=== PATIENT | female | born 1955 | race Caucasian/White ===

== ENCOUNTER 2021-01-21 09:52 | Inpatient (IN) | payer BC ==
[2021-01-21 10:21] LABS: Basophils # (A) 0.1 k/uL (0-0.2); Basophils % (A) 0 %; Eosinophils # (A) 0.2 k/uL (0-0.7); Eosinophils % (A) 1 %; HGB 15.2 gm/dL (11.4-16.0); Lymphocytes # (A) 2.3 k/uL (1.0-4.8); Lymphocytes % (A) 13 %; MCH 30.6 pg (25.0-35.0); MCV 92.8 fL (80.0-100.0); Mean Platelet Volume 8.6; Monocytes # (A) 0.4 k/uL (0-1.0); Monocytes % (A) 2 %; Neutrophils # (A) 14.8 k/uL (1.3-7.7); Neutrophils % (A) 83 %; Platelet Count 319 k/uL (150-450); RBC 4.96 m/uL (3.80-5.40); RDW 13.5 % (11.5-15.5); WBC 17.9 k/uL (3.8-10.6)
[2021-01-21 10:28] LABS: ALT 15 U/L (4-34); AST 34 U/L (14-36); African American GFR (CKD) >90 (>60 ml/min/1.73 sqM); Albumin 3.9 g/dL (3.5-5.0); Alkaline Phosphatase 95 U/L (38-126); Anion Gap 9 mmol/L; Blood Urea Nitrogen 12 mg/dL (7-17); Calcium 9.1 mg/dL (8.4-10.2); Carbon Dioxide 24 mmol/L (22-30); Chloride 102 mmol/L (98-107); Glucose 136 mg/dL (74-99); Magnesium 1.8 mg/dL (1.6-2.3); Non-African American GFR(CKD) >90 (>60 ml/min/1.73 sqM); Potassium 4.1 mmol/L (3.5-5.1); Sodium 135 mmol/L (137-145); Total Bilirubin 0.3 mg/dL (0.2-1.3); Total Protein 6.3 g/dL (6.3-8.2)
[2021-01-21 10:35] LABS: INR 0.9 (<1.2); Prothrombin Time 9.8 sec (9.0-12.0)
[2021-01-21] MEDS ORDERED: MORPHINE SULFATE 4 MG/ML SYRINGE IV PRN (10:38)
[2021-01-21] MEDS ORDERED: NALOXONE 0.4 MG/ML 1 ML VIAL IV PRN (10:38)
--- NOTE | 2021-01-21 10:38 | ED ---
General Adult HPI - General Stated complaint: Chest pain Time Seen by Provider: 01/21/21 09:53 Source: EMS, RN notes reviewed, old records reviewed Mode of arrival: EMS - History of Present Illness Initial comments: 65-year-old female had presented to outside emergency department for evaluation of chest discomfort which was in the center of her chest. This began approximately 3 AM. Patient has no known history of coronary artery disease. She states she has had some testing in the past and this was negative including stress test. She has no history DVT or PE. Patient's symptoms were treated wit h nitroglycerin at outside hospital and did result and relief of discomfort. She has minimal symptoms at the time my evaluation. She does have history of hypertension, hyperlipidemia, and is a current smoker. She was transferred for cardiology evaluation. - Related Data Allergies Allergy/AdvReac Type Severity Reaction Status Date / Time bee venom protein (honey bee) Allergy Anaphylaxis Verified 01/21/21 11:09 mold Allergy Unknown Verified 01/21/21 11:09 Review of Systems ROS Statement: Those systems with pertinent positive or pertinent negative responses have been documented in the HPI. ROS Other: All systems not noted in ROS Statement are negative. Past Medical History History of Any Multi-Drug Resistant Organisms: None Reported Past Psychological History: Anxiety Smoking Status: Current every day smoker Past Alcohol Use History: None Reported Past Drug Use History: None Reported General Exam General appearance: alert, in no apparent distress Head exam: Present: atraumatic, normocephalic Eye exam: Present: normal appearance, PERRL ENT exam: Present: normal exam Neck exam: Present: normal inspection. Absent: tenderness, meningismus Respiratory exam: Present: normal lung sounds bilaterally. Absent: respiratory distress, wheezes, rales Cardiovascular Exam: Present: regular rate, normal rhythm GI/Abdominal exam: Present: soft. Absent: distended, tenderness, guarding Extremities exam: Present: normal inspection, normal capillary refill. Absent: pedal edema Neurological exam: Present: alert, oriented X3, CN II-XII intact. Absent: motor sensory deficit Psychiatric exam: Present: normal affect, normal mood Skin exam: Present: warm, dry, intact. Absent: cyanosis, diaphoretic Course Vital Signs 01/21/21 01/21/21 09:53 10:14 Temperature 98.2 F Pulse Rate 75 68 Respiratory 20 20 Rate Blood Pressure 148/97 148/97 O2 Sat by Pulse 96 97 Oximetry EKG Findings - EKG Comments: EKG Findings:: EKG: Normal sinus rhythm, no ST segment elevation, rate of 70, OH interval 142, QRS duration 84, QTC 453. Repeat EKG at 1045, normal sinus rhythm no ST segment elevation, rate of 66, OH interval 142, QRS duration 88, QTC 442 Medical Decision Making - Medical Decision Making 65-year-old female with a transfer from outside hospital for evaluation of chest pain. EKG was sinus rhythm without ST segment elevation. Chest x-ray was performed, these images are currently being loaded for evaluation. Patient had a leukocytosis of 17.8, hemoglobin 14.9. She had platelets of 333. Normal electrolytes, normal kidney function, initial troponin was 0.05. All laboratory studies are currently being repeated in these results are pending. Case discussed with Dr. Isbell who will admit with cardiology on consult. Repeat troponin is elevated 0.8. Patient is started on heparin. Cardiology has been paged. Mar gage for Cardiology will evaluate patient in the emergency department, - Lab Data Result diagrams: 01/21/21 10:04 01/21/21 10:04 Lab Results 01/21/21 01/21/21 01/21/21 Range/Units 10:04 10:04 10:04 WBC 17.9 H (3.8-10.6) k/uL RBC 4.96 (3.80-5.40) m/uL Hgb 15.2 (11.4-16.0) gm/dL Hct 46.0 (34.0-46.0) % MCV 92.8 (80.0-100.0) fL MCH 30.6 (25.0-35.0) pg MCHC 33.0 (31.0-37.0) g/dL RDW 13.5 (11.5-15.5) % Plt Count 319 (150-450) k/uL MPV 8.6 Neutrophils % 83 % Lymphocytes % 13 % Monocytes % 2 % Eosinophils % 1 % Basophils % 0 % Neutrophils # 14.8 H (1.3-7.7) k/uL Lymphocytes # 2.3 (1.0-4.8) k/uL Monocytes # 0.4 (0-1.0) k/uL Eosinophils # 0.2 (0-0.7) k/uL Basophils # 0.1 (0-0.2) k/uL PT 9.8 (9.0-12.0) sec INR 0.9 (<1.2) APTT 20.9 L (22.0-30.0) sec Sodium 135 L (137-145) mmol/L Potassium 4.1 (3.5-5.1) mmol/L Chloride 102 (98-107) mmol/L Carbon Dioxide 24 (22-30) mmol/L Anion Gap 9 mmol/L BUN 12 (7-17) mg/dL Creatinine 0.45 L (0.52-1.04) mg/dL Est GFR (CKD-EPI)AfAm >90 (>60 ml/min/1.73 sqM) Est GFR (CKD-EPI)NonAf >90 (>60 ml/min/1.73 sqM) Glucose 136 H (74-99) mg/dL Calcium 9.1 (8.4-10.2) mg/dL Magnesium 1.8 (1.6-2.3) mg/dL Total Bilirubin 0.3 (0.2-1.3) mg/dL AST 34 (14-36) U/L ALT 15 (4-34) U/L Alkaline Phosphatase 95 (38-126) U/L Troponin I (0.000-0.034) ng/mL Total Protein 6.3 (6.3-8.2) g/dL Albumin 3.9 (3.5-5.0) g/dL 01/21/21 Range/Units 10:04 WBC (3.8-10.6) k/uL RBC (3.80-5.40) m/uL Hgb (11.4-16.0) gm/dL Hct (34.0-46.0) % MCV (80.0-100.0) fL MCH (25.0-35.0) pg MCHC (31.0-37.0) g/dL RDW (11.5-15.5) % Plt Count (150-450) k/uL MPV Neutrophils % % Lymphocytes % % Monocytes % % Eosinophils % % Basophils % % Neutrophils # (1.3-7.7) k/uL Lymphocytes # (1.0-4.8) k/uL Monocytes # (0-1.0) k/uL Eosinophils # (0-0.7) k/uL Basophils # (0-0.2) k/uL PT (9.0-12.0) sec INR (<1.2) APTT (22.0-30.0) sec Sodium (137-145) mmol/L Potassium (3.5-5.1) mmol/L Chloride (98-107) mmol/L Carbon Dioxide (22-30) mmol/L Anion Gap mmol/L BUN (7-17) mg/dL Creatinine (0.52-1.04) mg/dL Est GFR (CKD-EPI)AfAm (>60 ml/min/1.73 sqM) Est GFR (CKD-EPI)NonAf (>60 ml/min/1.73 sqM) Glucose (74-99) mg/dL Calcium (8.4-10.2) mg/dL Magnesium (1.6-2.3) mg/dL Total Bilirubin (0.2-1.3) mg/dL AST (14-36) U/L ALT (4-34) U/L Alkaline Phosphatase (38-126) U/L Troponin I 0.866 H* (0.000-0.034) ng/mL Total Protein (6.3-8.2) g/dL Albumin (3.5-5.0) g/dL Critical Care Time Critical Care Time: Yes Total Critical Care Time: 35 Disposition Clinical Impression: Acute non-ST elevation myocardial infarction (NSTEMI) Disposition: ADMITTED IP TO THIS [facility] Condition: Serious Is patient prescribed a controlled substance at d/c from ED?: No Decision to Admit Reason: Admit from EC Decision Date: 01/21/21 Decision Time: 10:38
[2021-01-21] MEDS ORDERED: ASPIRIN 325 MG TAB PO STA (10:40)
[2021-01-21 10:41] LABS: Partial Thromboplastin Time 20.9 sec (22.0-30.0)
[2021-01-21] MEDS ORDERED: NITROGLYCERIN OINT 1 INCH/GM PACKET TOPICAL STA (10:51)
[2021-01-21] MEDS ORDERED: HEPARIN SODIUM 1,000 UN/ML (10ML VL) IV PRN (10:57)
[2021-01-21] MEDS ORDERED: ATORVASTATIN 80 MG TAB PO STA (10:57)
[2021-01-21] MEDS ORDERED: HEPARIN SODIUM 1,000 UN/ML (10ML VL) IV ONE (10:57)
[2021-01-21] MEDS ORDERED: HEPARIN SOD,PORK IN 0.45% NACL 25,000 UNIT in 0.45% NACL 1 250ML.BAG IV SCH (11:00)
[2021-01-21] MEDS ORDERED: METOPROLOL TARTRATE 12.5 MG TAB PO SCH (11:30)
[2021-01-21] MEDS ORDERED: IV FLUID CONTINUATION 300 ML IV ONE (12:55)
--- NOTE | 2021-01-21 13:04 | P.CRDCN ---
History of Present Illness Consult date: 01/21/21 History of present illness: This is a 65-year-old female with history of smoking and strong family history of ischemic heart disease in both parents, is transferred from outside facility to this emergency room from [facility]. She woke up around 3:00 this morning with severe chest discomfort associated with shortness of breath. Patient got up and she took a drink took a sip of water without much relief. Finally patient went to the emergency room where she was treated with 3 sublingual nitroglycerin with gradual relief of pain. Her EKGs did not reveal any acute changes. Her troponin is mildly elevated. She also has white count elevation. She was given morphine for pain in the emergency room and seemed to be fairly comfortable. Patient is on Nitropaste and also IV heparin at this time. As patient is comfortable, patient is advised to have cardiac catheterization and which could be scheduled for tomorrow. However, patient requested that the catheterization be done as soon as possible. She understands the risks and benefits associated with the procedure. Further recommendations depend upon findings on the cardiac cath. Review of Systems As per the chart Past Medical History History of Any Multi-Drug Resistant Organisms: None Reported Past Psychological History: Anxiety Smoking Status: Current every day smoker Past Alcohol Use History: None Reported Past Drug Use History: None Reported Medications and Allergies Home Medications Medication Instructions Recorded Confirmed Type ALPRAZolam [Xanax] 0.25 mg PO DAILY 01/21/21 01/21/21 History ALPRAZolam [Xanax] 0.5 mg PO HS 01/21/21 01/21/21 History Albuterol Nebulized [Ventolin 2.5 mg INHALATION RT-QID PRN 01/21/21 01/21/21 History Nebulized] Aspirin 324 mg PO DIRECTED PRN 01/21/21 01/21/21 History Aspirin EC [Ecotrin Low Dose] 81 mg PO Q48H 01/21/21 01/21/21 History Cyclobenzaprine [Flexeril] 5 mg PO Q6H PRN 01/21/21 01/21/21 History Nitroglycerin Sl Tabs [Nitrostat] 0.4 mg SL Q5M PRN 01/21/21 01/21/21 History Omeprazole 20 mg PO HS 01/21/21 01/21/21 History Allergies Allergy/AdvReac Type Severity Reaction Status Date / Time bee venom protein (honey bee) Allergy Swelling Verified 01/21/21 11:28 mold Allergy Dyspnea Verified 01/21/21 11:28 Physical Exam Vitals: Vital Signs Temp Pulse Resp BP Pulse Ox 01/21/21 12:37 81 20 144/86 96 01/21/21 11:25 67 20 125/80 97 01/21/21 10:14 68 20 148/97 97 01/21/21 09:53 98.2 F 75 20 148/97 96 Intake and Output 01/20/21 01/21/21 01/21/21 22:59 06:59 14:59 Other: Weight 87.09 kg GENERAL EXAM: Patient is alert and oriented and doesn't appear to be in any acute distress HEENT: Normocephalic. Normal reaction of pupils, equal size, normal range of extraocular motion. No erythema or exudates in the throat. NECK: No masses, no nuchal rigidity. CHEST: No chest wall deformity. LUNGS: Equal air entry with no crackles or wheeze. HEART: S1 and S2 normal with no audible mumurs or gallops. Regular rhythm, femorals equal on both sides.. ABDOMEN: No hepatosplenomegaly, normal bowel sounds, no guarding or rigidity. SKIN: No rashes CENTRAL NERVOUS SYSTEM: No focal deficits. EXTREMITIES: No cyanosis, clubbing or edema. Results 01/21/21 10:04 01/21/21 10:04 Cardiac Enzymes 01/21/21 01/21/21 Range/Units 10:04 10:04 AST 34 (14-36) U/L Troponin I 0.866 H* (0.000-0.034) ng/mL Coagulation 01/21/21 Range/Units 10:04 PT 9.8 (9.0-12.0) sec APTT 20.9 L (22.0-30.0) sec CBC 01/21/21 Range/Units 10:04 WBC 17.9 H (3.8-10.6) k/uL RBC 4.96 (3.80-5.40) m/uL Hgb 15.2 (11.4-16.0) gm/dL Hct 46.0 (34.0-46.0) % Plt Count 319 (150-450) k/uL Comprehensive Metabolic Panel 01/21/21 Range/Units 10:04 Sodium 135 L (137-145) mmol/L Potassium 4.1 (3.5-5.1) mmol/L Chloride 102 (98-107) mmol/L Carbon Dioxide 24 (22-30) mmol/L BUN 12 (7-17) mg/dL Creatinine 0.45 L (0.52-1.04) mg/dL Glucose 136 H (74-99) mg/dL Calcium 9.1 (8.4-10.2) mg/dL AST 34 (14-36) U/L ALT 15 (4-34) U/L Alkaline Phosphatase 95 (38-126) U/L Total Protein 6.3 (6.3-8.2) g/dL Albumin 3.9 (3.5-5.0) g/dL Current Medications Generic Name Dose Route Start Last Admin Trade Name Freq PRN Reason Stop Dose Admin Acetaminophen 650 mg 01/21/21 10:38 Acetaminophen Tab 325 Mg Tab PO Q6HR PRN Mild Pain or Fever > 100.5 Aspirin 81 mg 01/22/21 09:00 Aspirin 81 Mg PO DAILY [facility] Atorvastatin Calcium 80 mg 01/21/21 21:00 Atorvastatin 80 Mg Tab PO HS DEAN Heparin Sodium (Porcine) 0 unit 01/21/21 10:57 Heparin Sodium 1,000 Un/Ml (10ml Vl) IV PER PROTOCOL PRN Low PTT Protocol Heparin Sodium/Sodium Chloride 250 mls @ 10.015 mls/hr 01/21/21 11:00 01/21/21 11:23 25,000 unit/ Sodium Chloride IV 11.48 units/kg/hr .Q24H DEAN 10 mls/hr Administration Protocol 11.5 UNITS/KG/HR Metoprolol Tartrate 12.5 mg 01/21/21 11:30 01/21/21 11:55 Metoprolol Tartrate 12.5 Mg Tab PO 12.5 mg BID DEAN Administration Morphine Sulfate 4 mg 01/21/21 10:38 01/21/21 11:08 Morphine Sulfate 4 Mg/Ml Syringe IV 4 mg Q4HR PRN Administration Severe Pain Naloxone HCl 0.2 mg 01/21/21 10:38 Naloxone 0.4 Mg/Ml 1 Ml Vial IV Q2M PRN Opioid Reversal Nitroglycerin 1 inch 01/21/21 16:00 Nitroglycerin Oint 1 Inch/Gm Packet TOPICAL Q8HR [facility] Intake and Output 01/20/21 01/21/21 01/21/21 22:59 06:59 14:59 Other: Weight 87.09 kg Patient Weight 01/22/21 06:59 Weight 87.09 kg 01/21/21 10:04 01/21/21 10:04 EKG Interpretations (text) Sinus rhythm Assessment and Plan (1) Smoking Current Visit: Yes Status: Acute Code(s): F17.200 - NICOTINE DEPENDENCE, UNSPECIFIED, UNCOMPLICATED SNOMED Code(s): 31845241 (2) Acute non-ST elevation myocardial infarction (NSTEMI) Current Visit: Yes Status: Acute Code(s): I21.4 - NON-ST ELEVATION (NSTEMI) MYOCARDIAL INFARCTION SNOMED Code(s): 201755104 (3) Family history of ischemic heart disease Current Visit: Yes Status: Acute Code(s): Z82.49 - FAMILY HX OF ISCHEM HEART DIS AND OTH DIS OF THE CIRC SYS SNOMED Code(s): 431119049 Plan: Patient wants to proceed with cardiac catheterization for definitive diagnosis. Further recommendations depend upon the cardiac cath. We'll also obtain an echocardiogram. Continue with beta blockers, nitrates, aspirin, lipid-lowering agents and oxygen
[2021-01-21] MEDS ORDERED: fentaNYL (PF) 50 MCG/ML 2 ML AMP IV ONE (13:12)
[2021-01-21] MEDS ORDERED: LIDOCAINE 1% INJ 10MG/ML (20 ML MDV) SQ ONE (13:15)
[2021-01-21] MEDS ORDERED: VERAPAMIL SYRINGE (5 MG/10 ML) INTRAARTER ONE (13:18)
[2021-01-21] MEDS ORDERED: MIDAZOLAM 2 MG/2 ML VIAL IV ONE (13:18)
[2021-01-21] MEDS: HEPARIN SODIUM 1,000 UN/ML (10ML VL) IV ONE ×2 (13:23→13:39)
[2021-01-21] MEDS ORDERED: IOPAMIDOL-370 100ML BTL INJ ONE ×2 (13:44→14:15)
[2021-01-21] MEDS: NITROGLYCERIN 1000MCG/10ML SYRINGE INTRACORON ONE ×2 (13:59→14:07)
[2021-01-21] MEDS ORDERED: CLOPIDOGREL 75 MG TAB PO ONE (14:08)
--- NOTE | 2021-01-21 15:01 | ECHOF ---
Referral Reason:CP MEASUREMENTS -------- HEIGHT: 152.4 cm WEIGHT: 87.1 kg BP: RVIDd: 2.8 cm (< 3.3) IVSd: 1.2 cm (0.6 - 1.1) LVIDd: 4.3 cm (3.9 - 5.3) LVPWd: 1.3 cm (0.6 - 1.1) IVSs: 1.7 cm LVIDs: 3.2 cm LVPWs: 1.2 cm LAESV Index (A-L): 19.23 ml/m Ao Diam: 2.9 cm (2.0 - 3.7) AV Cusp: 2.0 cm (1.5 - 2.6) MV EXCURSION: 16.312 mm (> 18.000) MV EF SLOPE: 62 mm/s (70 - 150) EPSS: 0.6 cm MV E Baljeet: 0.50 m/s MV DecT: 200 ms MV A Baljeet: 0.99 m/s MV E/A Ratio: 0.51 RAP: 5.00 mmHg RVSP: 11.24 mmHg FINDINGS -------- Sinus rhythm. This was a technically good study. The left ventricular size is normal. There is mild concentric left ventricular hypertrophy. Overa ll left ventricular systolic function is mild-moderately impaired with, an EF between 40 - 45 %. Ba yanci lateral LV wall motion is hypokinetic. Basal posterior LV wall motion is hypokinetic. Basal inferior LV wall motion is hypokinetic. Mid lateral LV wall motion is hypokinetic. Mid posteri or LV wall motion is hypokinetic. Mid inferior LV wall motion is hypokinetic. The right ventricle is normal in size. Normal LA size by volume 22+/-6 ml/m2. The right atrial size is normal. There is mild aortic valve sclerosis. There is no evidence of aortic regurgitation. Mild mitral regurgitation is present. Mild tricuspid regurgitation present. Right ventricular systolic pressure is normal at < 35 mmHg. There is no pulmonic regurgitation present. Echo free space indicative of a pericardial fat pad. CONCLUSIONS -------- 1. The left ventricular size is normal. 2. There is mild concentric left ventricular hypertrophy. 3. Basal lateral LV wall motion is hypokinetic. 4. Mid lateral LV wall motion is hypokinetic. 5. The right ventricle is normal in size. 6. Normal LA size by volume 22+/-6 ml/m2. 7. The right atrial size is normal. 8. There is mild aortic valve sclerosis. 9. Mild mitral regurgitation is present. 10. Mild tricuspid regurgitation present. 11. Echo free space indicative of a pericardial fat pad. WEB COORDINATOR: Nandini Velasco RDCS
[2021-01-21] MEDS ORDERED: NITROGLYCERIN SL TABS 0.4 MG TAB SUBLINGUAL PRN (15:44)
[2021-01-21] MEDS ORDERED: CYCLOBENZAPRINE 5 MG TAB PO PRN (15:44)
[2021-01-21] MEDS ORDERED: ALBUTEROL NEBULIZED 2.5 MG/3 ML INHALATION PRN (15:44)
[2021-01-21] MEDS ORDERED: NON FORMULARY DRUG (Aspirin Ec 81 MG Tablet.Dr) PO SCH (15:45)
[2021-01-21 16:14] LABS: Glucose,Whole Blood 119 mg/dL (75-99)
--- NOTE | 2021-01-21 17:28 | CC ---
CARDIAC CATHETERIZATION REPORT DATE OF SERVICE: 01/21/2021 PROCEDURE: PTCA and stenting of a totally occluded mid circumflex coronary artery. PERFORMED BY: Dr. Gray Mota. Moderate conscious sedation time was 45 minutes. Patient was administered Versed. Oxygen saturation, hemodynamics and EKG were monitored closely. CLINICAL INFORMATION: Mrs. Vijaya Peres is a 65-year-old lady who is a smoker, came into the hospital with chest pain upon transfer from [place] or [place] was found to have elevated troponin and mild chest discomfort suggestive of non-ST elevation [place] with mild ST- segment depression in the EKG. Dr. Foy evaluated the patient, performed cardiac cath which revealed total occlusion of mid circumflex after the origin of a groove branch. She had moderate noncritical disease in other vessels. She was advised PCI that was performed expeditiously. PCI PROCEDURE DETAILS: The patient's ACT was 184. I gave 2500 units of heparin and ACT went up to 340. I used a Voda 3.5 guide catheter to cannulate the left coronary artery. I used the same right radial 6-Lao sheath. A run-through wire was used, but I could not cross the lesion. I used a super cross 45 degree. With this combination, I was able to get across the lesion. Wire was kept distally. This was a very tortuous branch and there seemed to be a lot of thrombus that went distally. However, the flow was excellent. Patient had total relief of chest pain. EKG improved with the resolution of ST-segment depression. I initially dilated with a 2.5 caliber 12 mm NC Trek balloon at the total occlusion and then deployed a 2.75 caliber 15 mm long Xience stent at 13 atmospheres. The patient received 600 mg of Plavix and also heparin was given and ACT was about 340. Excellent angiographic result without complication was achieved. The sheath was taken out and a TR band applied as per protocol. Saturation of the fingers of the right hand was 95%. Excellent angiographic result without complication was achieved. Very distally there seems to be some thrombus, but there is also extreme tortuosity and therefore I did not wish to pursue the distal lesion beyond which there was only a small amount of vessel. Results were discussed with the patient and family and she was sent to the room in stable condition. MMODL / IJN: [id number] /
[2021-01-21] MEDS: NICOTINE 14MG/24HR PATCH TRANSDERM SCH (17:56)
[2021-01-21] MEDS: NITROGLYCERIN OINT 1 INCH/GM PACKET TOPICAL SCH ×2 (17:57→22:44)
--- NOTE | 2021-01-21 18:21 | P.HPIM ---
History of Present Illness H&P Date: 01/21/21 Chief Complaint: Chest pain 65-year-old female had presented to outside emergency department for evaluation of chest discomfort which was in the center of her chest. This began approximately 3 AM. Patient has no known history of coronary artery disease. She states she has had some testing in the past and this was negative including stress test. She has no history DVT or PE. Patient's symptoms were treated with nitroglycerin at outside hospital and did result and relief of discomfort. She has minimal symptoms at the time my evaluation. She does have history of hy pertension, hyperlipidemia, and is a current smoker. She was transferred for cardiology evaluation. Workup in ED; ETT did not reveal any acute changes; blood work reveals initial troponin of 0.866 which trended up to 3.800; elevated WBC of 17.9, hemoglobin 15.2 and platelet count of 1319, sodium 135, BUN/creatinine of 12/0.45 and glucose of 136 Patient is admitted to the hospital for further cardiology evaluation Review of Systems REVIEW OF SYSTEMS: CONSTITUTIONAL: No fever, no malaise, no fatigue. HEENT: No recent visual problems or hearing problems. Denied any sore throat. CARDIOVASCULAR: No chest pain, orthopnea, PND, no palpitations, no syncope. PULMONARY: No shortness of breath, no cough, no hemoptysis. GASTROINTESTINAL: No diarrhea, no nausea, no vomiting, no abdominal pain. NEUROLOGICAL: No headaches, no weakness, no numbness. HEMATOLOGICAL: Denies any bleeding or petechiae. GENITOURINARY: Denies any burning micturition, frequency, or urgency. MUSCULOSKELETAL/RHEUMATOLOGICAL: Denies any joint pain, swelling, or any muscle pain. ENDOCRINE: Denies any polyuria or polydipsia. The rest of the 14-point review of systems is negative. Past Medical History History of Any Multi-Drug Resistant Organisms: None Reported Past Psychological History: Anxiety Smoking Status: Current every day smoker Past Alcohol Use History: None Reported Past Drug Use History: None Reported - Past Family History Father History Unknown: Yes Mother History Unknown: Yes Medications and Allergies Home Medications Medication Instructions Recorded Confirmed Type ALPRAZolam [Xanax] 0.25 mg PO DAILY 01/21/21 01/21/21 History ALPRAZolam [Xanax] 0.5 mg PO HS 01/21/21 01/21/21 History Albuterol Nebulized [Ventolin 2.5 mg INHALATION RT-QID PRN 01/21/21 01/21/21 History Nebulized] Aspirin 324 mg PO DIRECTED PRN 01/21/21 01/21/21 History Aspirin EC [Ecotrin Low Dose] 81 mg PO Q48H 01/21/21 01/21/21 History Cyclobenzaprine [Flexeril] 5 mg PO Q6H PRN 01/21/21 01/21/21 History Nitroglycerin Sl Tabs [Nitrostat] 0.4 mg SL Q5M PRN 01/21/21 01/21/21 History Omeprazole 20 mg PO HS 01/21/21 01/21/21 History Allergies Allergy/AdvReac Type Severity Reaction Status Date / Time bee venom protein (honey bee) Allergy Swelling Verified 01/21/21 11:28 mold Allergy Dyspnea Verified 01/21/21 11:28 Physical Exam Vitals: Vital Signs Temp Pulse Resp BP Pulse Ox 01/21/21 10:14 68 20 148/97 97 01/21/21 09:53 98.2 F 75 20 148/97 96 Intake and Output 01/20/21 01/21/21 01/21/21 22:59 06:59 14:59 Other: Weight 87.09 kg PHYSICAL EXAMINATION: GENERAL: The patient is alert and oriented x3, not in any acute distress. Well developed, well nourished. HEENT: Pupils are round and equally reacting to light. EOMI. No scleral icterus. No conjunctival pallor. Normocephalic, atraumatic. No pharyngeal erythema. No thyromegaly. CARDIOVASCULAR: S1 and S2 present. No murmurs, rubs, or gallops. PULMONARY: Chest is clear to auscultation, no wheezing or crackles. ABDOMEN: Soft, nontender, nondistended, normoactive bowel sounds. No palpable organomegaly. MUSCULOSKELETAL: No joint swelling or deformity. EXTREMITIES: No cyanosis, clubbing, or pedal edema. NEUROLOGICAL: Gross neurological examination did not reveal any focal deficits. SKIN: No rashes. Results CBC & Chem 7: 01/21/21 10:04 01/21/21 10:04 Labs: Abnormal Lab Results - Last 24 Hours (Table) 01/21/21 Range/Units 10:04 WBC 17.9 H (3.8-10.6) k/uL Neutrophils # 14.8 H (1.3-7.7) k/uL Assessment and Plan Assessment: 1. Non-STEMI - Patient's troponin trended up to 3.08; patient is started on IV heparin; we will monitor EKG and trend troponin; scheduled for 2-D echo; started on aspirin and statin therapy; further recommendations after patient seen by cardiology 2. Leukocytosis; possibly reactive; we will monitor CBC with plans to initiate sepsis workup if white blood count remains elevated 3. Anxiety; we will continue with home dose of Xanax 4. Chronic tobacco abuse; patient counseled on need for some cessation DVT prophylaxis; SCDs/systemic anticoagulation with heparin CODE STATUS; full code
[2021-01-21] MEDS: ATORVASTATIN 80 MG TAB PO SCH (20:36)
[2021-01-21] MEDS: ALPRAZolam 0.5 MG TAB PO SCH (20:36)
[2021-01-21] MEDS: PANTOPRAZOLE 40 MG TABLET PO SCH (20:36)
[2021-01-21] MEDS: METOPROLOL SUCCINATE (ER) 25 MG TAB.ER.24H PO SCH (20:37)
[2021-01-22] MEDS: ACETAMINOPHEN TAB 325 MG TAB PO PRN ×2 (00:37→13:32)
[2021-01-22 08:52] LABS: Basophils # (A) 0.1 k/uL (0-0.2); Basophils % (A) 0 %; Eosinophils # (A) 0.2 k/uL (0-0.7); Eosinophils % (A) 1 %; HCT 46.2 % (34.0-46.0); HGB 15.2 gm/dL (11.4-16.0); Lymphocytes % (A) 20 %; MCH 30.9 pg (25.0-35.0); MCHC 32.8 g/dL (31.0-37.0); MCV 94.1 fL (80.0-100.0); Mean Platelet Volume 8.1; Monocytes # (A) 0.6 k/uL (0-1.0); Monocytes % (A) 4 %; Neutrophils # (A) 10.6 k/uL (1.3-7.7); Neutrophils % (A) 73 %; Platelet Count 315 k/uL (150-450); RBC 4.91 m/uL (3.80-5.40); RDW 13.5 % (11.5-15.5); WBC 14.6 k/uL (3.8-10.6)
[2021-01-22 08:58] LABS: African American GFR (CKD) >90 (>60 ml/min/1.73 sqM); Anion Gap 5 mmol/L; Blood Urea Nitrogen 7 mg/dL (7-17); Calcium 9.5 mg/dL (8.4-10.2); Carbon Dioxide 29 mmol/L (22-30); Chloride 103 mmol/L (98-107); Glucose 149 mg/dL (74-99); Non-African American GFR(CKD) >90 (>60 ml/min/1.73 sqM); Potassium 4.4 mmol/L (3.5-5.1); Sodium 137 mmol/L (137-145)
[2021-01-22] MEDS ORDERED: ASPIRIN 325 MG TAB PO SCH (09:00)
[2021-01-22] MEDS: NICOTINE 14MG/24HR PATCH TRANSDERM SCH (09:19)
[2021-01-22] MEDS: METOPROLOL SUCCINATE (ER) 25 MG TAB.ER.24H PO SCH ×2 (09:20→20:16)
[2021-01-22] MEDS: NITROGLYCERIN OINT 1 INCH/GM PACKET TOPICAL SCH ×3 (09:20→23:49)
[2021-01-22] MEDS: ASPIRIN 81 MG PO SCH (09:20)
[2021-01-22] MEDS: ALPRAZolam 0.25 MG TAB PO SCH (09:20)
[2021-01-22] MEDS: LOSARTAN 25 MG TAB PO SCH (09:20)
[2021-01-22] MEDS: CLOPIDOGREL 75 MG TAB PO SCH (09:20)
--- NOTE | 2021-01-22 14:32 | P.PN ---
Subjective Progress Note Date: 01/22/21 HISTORY OF PRESENT ILLNESS: 65-year-old female who underwent cardiac catheterization yesterday with Dr. Foy. Patient underwent stenting by Dr. Mota of a totally occluded mid circumflex coronary artery. Patient examined this point the bedside. She denies chest pain or pressure. She denies shortness of breath. Vital signs are stable. Echocardiogram completed revealed ejection fraction 40-45%. Basal lateral LV and mid lateral LV wall hypokinesis. Mild mitral regurgitation. Mild tricuspid regurgitation. Patient did have a 7 beat run of nonsustained V. tach overnight. PHYSICAL EXAM: VITAL SIGNS: Reviewed. GENERAL: Well-developed in no acute distress. NECK: Supple. No JVD or thyromegaly LUNGS: Respirations even and unlabored. Lungs essentially clear to auscultation bilaterally. HEART: Regular rate and rhythm. S1 and S2 heard. EXTREMITIES: Normal range of motion. No clubbing or cyanosis. Peripheral pulses intact. No lower extremity edema. Right radial cath site with pulse present. ASSESSMENT: Non-STEMI, status post stenting to circumflex artery Ischemic cardiomyopathy, ejection fraction 40-45% Nonsustained ventricular tachycardia Nicotine dependence Family history of coronary artery disease PLAN: Continue current cardiac medications including aspirin, Plavix, Lipitor, losarta n, metoprolol succinate Continue telemetry monitoring Anticipate discharge home tomorrow if patient remains stable Nurse practitioner note has been reviewed by physician. Signing provider agrees with the documented findings, assessment, and plan of care. Objective - Vital Signs Vital signs: Vital Signs Temp 98.9 F 01/22/21 08:00 Pulse 80 01/22/21 14:00 Resp 18 01/22/21 14:00 BP 113/79 01/22/21 12:00 Pulse Ox 97 01/22/21 12:00 Intake & Output 01/21/21 01/22/21 01/22/21 18:59 06:59 18:59 Intake Total 420 240 Balance 420 240 Weight 87.09 kg 71.7 kg Intake: IV 200 Oral 220 240 Other: Voiding Method Toilet Toilet Toilet # Voids 1 1 1 - Labs CBC & Chem 7: 01/22/21 08:10 01/22/21 08:10 Labs: Abnormal Lab Results - Last 24 Hours (Table) 01/21/21 01/22/21 01/22/21 Range/Units 16:12 08:10 08:10 WBC 14.6 H (3.8-10.6) k/uL Hct 46.2 H (34.0-46.0) % Neutrophils # 10.6 H (1.3-7.7) k/uL Glucose 149 H (74-99) mg/dL POC Glucose (mg/dL) 119 H (75-99) mg/dL
--- NOTE | 2021-01-22 17:35 | P.PN ---
Subjective Progress Note Date: 01/22/21 Principal diagnosis: Non-STEMI Leukocytosis 65-year-old female had presented to outside emergency department for evaluation of chest discomfort which was in the center of her chest. This began approximately 3 AM. Patient has no known history of coronary artery disease. She states she has had some testing in the past and this was negative including stress test. She has no history DVT or PE. Patient's symptoms were treated with nitroglycerin at outside hospital and did result and relief of discomfort. She has minimal symptoms at the time my evaluation. She does have history of hypertension, hyperlipidemia, and is a current smoker. She was transferred for cardiology evaluation. Workup in ED; ETT did not reveal any acute changes; blood work reveals initial troponin of 0.866 which trended up to 3.800; elevated WBC of 17.9, hemoglobin 15.2 and platelet count of 1319, sodium 135, BUN/creatinine of 12/0.45 and glucose of 136 Patient is admitted to the hospital for further cardiology evaluation Patient underwent cardiac catheterization which revealed totally occluded mid circumflex coronary artery; patient underwent stent placement; echocardiogram reveals EF of 40-45%, left ventricular wall hypokinesis; patient did have a 7 beat run of V. tach; cardiology on board and recommending to continue with aspirin, Plavix, Lipitor, losartan and metoprolol Possible discharge in next 24 hours if remains stable Objective - Vital Signs Vital signs: Vital Signs Temp 98.9 F 01/22/21 08:00 Pulse 78 01/22/21 08:00 Resp 18 01/22/21 08:00 BP 108/73 01/22/21 08:00 Pulse Ox 96 01/22/21 08:00 Intake & Output 01/21/21 01/22/21 01/22/21 18:59 06:59 18:59 Intake Total 420 240 Balance 420 240 Weight 87.09 kg 71.7 kg Intake: IV 200 Oral 220 240 Other: Voiding Method Toilet Toilet Toilet # Voids 1 1 1 - Exam PHYSICAL EXAMINATION: GENERAL: The patient is alert and oriented x3, not in any acute distress. Well developed, well nourished. HEENT: Pupils are round and equally reacting to light. EOMI. No scleral icterus. No conjunctival pallor. Normocephalic, atraumatic. No pharyngeal erythema. No thyromegaly. CARDIOVASCULAR: S1 and S2 present. No murmurs, rubs, or gallops. PULMONARY: Chest is clear to auscultation, no wheezing or crackles. ABDOMEN: Soft, nontender, nondistended, normoactive bowel sounds. No palpable organomegaly. MUSCULOSKELETAL: No joint swelling or deformity. EXTREMITIES: No cyanosis, clubbing, or pedal edema. NEUROLOGICAL: Gross neurological examination did not reveal any focal deficits. SKIN: No rashes. - Labs CBC & Chem 7: 01/22/21 08:10 01/22/21 08:10 Labs: Abnormal Lab Results - Last 24 Hours (Table) 01/21/21 01/21/21 01/22/21 Range/Units 12:45 16:12 08:10 WBC 14.6 H (3.8-10.6) k/uL Hct 46.2 H (34.0-46.0) % Neutrophils # 10.6 H (1.3-7.7) k/uL Glucose (74-99) mg/dL POC Glucose (mg/dL) 119 H (75-99) mg/dL Troponin I 3.800 H* (0.000-0.034) ng/mL 01/22/21 Range/Units 08:10 WBC (3.8-10.6) k/uL Hct (34.0-46.0) % Neutrophils # (1.3-7.7) k/uL Glucose 149 H (74-99) mg/dL POC Glucose (mg/dL) (75-99) mg/dL Troponin I (0.000-0.034) ng/mL Assessment and Plan Assessment: 1. Non-STEMI - Patient's troponin trended up to 3.08; patient is started on IV heparin; we will monitor EKG and trend troponin; scheduled for 2-D echo; started on aspirin and statin therapy; further recommendations after patient seen by cardiology 2. Leukocytosis; possibly reactive; we will monitor CBC with plans to initiate sepsis workup if white blood count remains elevated 3. Anxiety; we will continue with home dose of Xanax 4. Chronic tobacco abuse; patient counseled on need for some cessation DVT prophylaxis; SCDs/systemic anticoagulation with heparin CODE STATUS; full code
[2021-01-22] MEDS: ATORVASTATIN 80 MG TAB PO SCH (20:16)
[2021-01-22] MEDS: PANTOPRAZOLE 40 MG TABLET PO SCH (20:16)
[2021-01-22] MEDS: ALPRAZolam 0.5 MG TAB PO SCH (20:17)
[2021-01-23] MEDS: NITROGLYCERIN OINT 1 INCH/GM PACKET TOPICAL SCH (08:14)
[2021-01-23] MEDS: ALPRAZolam 0.25 MG TAB PO SCH (08:17)
[2021-01-23] MEDS: ASPIRIN 81 MG PO SCH (08:17)
[2021-01-23] MEDS: LOSARTAN 25 MG TAB PO SCH (08:17)
[2021-01-23] MEDS: CLOPIDOGREL 75 MG TAB PO SCH (08:17)
[2021-01-23] MEDS: METOPROLOL SUCCINATE (ER) 25 MG TAB.ER.24H PO SCH (08:18)
[2021-01-23] MEDS: NICOTINE 14MG/24HR PATCH TRANSDERM SCH (08:18)
[2021-01-23 08:47] VITALS: RESP 20
--- NOTE | 2021-01-23 11:22 | P.PN ---
Subjective Progress Note Date: 01/23/21 HISTORY OF PRESENT ILLNESS: 65-year-old female who underwent cardiac catheterization yesterday with Dr. Foy. Patient underwent stenting by Dr. Mota of a totally occluded mid circumflex coronary artery. Patient examined this point the bedside. She denies chest pain or pressure. She denies shortness of breath. Vital signs are stable. Echocardiogram completed revealed ejection fraction 40-45%. Basal lateral LV and mid lateral LV wall hypokinesis. Mild mitral regurgitation. Mild tricuspid regurgitation. Patient did have a 7 beat run of nonsustained V. tach overnight. 01/23/2021 Patient examined this morning at the bedside. Patient denies chest pain or pressure. She denies shortness of breath. Patient's vital signs are stable. Patient is anxious to be discharged home today. PHYSICAL EXAM: VITAL SIGNS: Reviewed. GENERAL: Well-developed in no acute distress. NECK: Supple. No JVD or thyromegaly LUNGS: Respirations even and unlabored. Lungs essentially clear to auscultation bilaterally. HEART: Regular rate and rhythm. S1 and S2 heard. EXTREMITIES: Normal range of motion. No clubbing or cyanosis. Peripheral pulses intact. No lower extremity edema. Right radial cath site with pulse present. ASSESSMENT: Non-STEMI, status post stenting to circumflex artery Ischemic cardiomyopathy, ejection fraction 40-45% Nonsustained ventricular tachycardia Nicotine dependence Family history of coronary artery disease PLAN: Continue current cardiac medications including aspirin, Plavix, Lipitor, losartan, metoprolol succinate Patient may be discharged home today from a cardiac standpoint. She is to follow up outpatient with Dr. Foy Nurse practitioner note has been reviewed by physician. Signing provider agrees with the documented findings, assessment, and plan of care. Objective - Vital Signs Vital signs: Vital Signs Temp 97.8 F 01/23/21 08:00 Pulse 72 01/23/21 08:00 Resp 20 01/23/21 08:00 BP 105/67 01/23/21 08:00 Pulse Ox 97 01/23/21 08:00 Intake & Output 01/22/21 01/23/21 01/23/21 18:59 06:59 18:59 Intake Total 598 240 Balance 598 240 Weight 71.3 kg Intake: Oral 598 240 Other: Voiding Method Toilet Toilet # Voids 1 0 1 - Labs CBC & Chem 7: 01/22/21 08:10 01/22/21 08:10 Labs: Abnormal Lab Results - Last 24 Hours (Table) 01/23/21 Range/Units 09:01 Troponin I 15.400 H* (0.000-0.034) ng/mL
[2021-01-23 11:37] VITALS: BP 107/67; PULSE 83; TEMP 98.5
--- NOTE | 2021-01-24 13:20 | P.DS ---
Providers Date of admission: 01/21/21 10:38 Expected date of discharge: 01/23/21 Attending physician: Pratibha Isbell Consults: 01/21/21 10:39 Consult Physician Routine Consulting Provider: Jenna Foy Consult Reason/Comments: NSTEMI Do you want consulting provider notified?: Already Contacted Primary care physician: Tyrell Connors Hospital Course: Final diagnosis N-STEMI status post cardiac catheterization with stent placement Totally occluded mid circumflex coronary artery with stent placement with EF of 40-45% Leukocytosis most likely reactive and trending down Anxiety continued ongoing nicotine dependence with counseling provided DVT prophylaxis GI prophylaxis Full code Discharge disposition Patient is being discharged in a stable condition with guarded prognosis to home. Patient will follow-up with Dr. Tyrell Connors in the outpatient setting upon discharge. Patient is to follow-up with cardiology Dr. Foy in the outpatient setting in 1 week. Total time taken is greater than 35 minutes. Hospital course Non-STEMI Leukocytosis 65-year-old female had presented to outside emergency department for evaluation of chest discomfort which was in the center of her chest. This began approximately 3 AM. Patient has no known history of coronary artery disease. She states she has had some testing in the past and this was negative including stress test. She has no history DVT or PE. Patient's symptoms were treated with nitroglycerin at outside hospital and did result and relief of discomfort. She has minimal symptoms at the time my evaluation. She does have history of hypertension, hyperlipidemia, and is a current smoker. She was transferred for cardiology evaluation. Workup in ED; ETT did not reveal any acute changes; blood work reveals initial troponin of 0.866 which trended up to 3.800; elevated WBC of 17.9, hemoglobin 15.2 and platelet count of 1319, sodium 135, BUN/creatinine of 12/0.45 and gluc ose of 136 Patient is admitted to the hospital for further cardiology evaluation Patient underwent cardiac catheterization which revealed totally occluded mid circumflex coronary artery; patient underwent stent placement; echocardiogram reveals EF of 40-45%, left ventricular wall hypokinesis; patient did have a 7 beat run of V. tach; cardiology on board and recommending to continue with aspirin, Plavix, Lipitor, losartan and metoprolol Possible discharge in next 24 hours if remains stable 01/23/2021 Patient is seen in follow-up with no acute overnight issues noted. Patient was cleared by cardiology recommending continuing with current medications and outpatient follow-up with Dr. Dr. Foy in one week. Patient will be prescribed nicotine patches and encouraged strongly to discontinue tobacco use. And also instructed follow-up with primary care provider upon discharge. Currently no reports of chest pain, shortness of breath, or palpitations. Patient is afebrile. No reports of nausea or vomiting and patient is tolerating diet. Patient will be discharged home today. GENERAL: The patient is alert and oriented x3, not in any acute distress. Well developed, well nourished. HEENT: Pupils are round and equally reacting to light. EOMI. No scleral icterus. No conjunctival pallor. Normocephalic, atraumatic. No pharyngeal erythema. No thyromegaly. CARDIOVASCULAR: S1 and S2 present. No murmurs, rubs, or gallops. PULMONARY: Chest is clear to auscultation, no wheezing or crackles. ABDOMEN: Soft, nontender, nondistended, normoactive bowel sounds. No palpable organomegaly. MUSCULOSKELETAL: No joint swelling or deformity. EXTREMITIES: No cyanosis, clubbing, or pedal edema. NEUROLOGICAL: Gross neurological examination did not reveal any focal deficits. SKIN: No rashes. On exam vital signs are stable. Cardio S1, S2 are muffled. Respiratory system shows diminished breath sounds at the bases with no wheezing or rhonchi noted. Abdomen is soft and obese, and nontender. Nervous system shows diffuse weakness. Please refer to medication reconciliation sheet for a list of medications. Patient Condition at Discharge: Stable Plan - Discharge Summary Discharge Rx Participant: Yes New Discharge Prescriptions: New Metoprolol Succinate (ER) [Toprol XL] 25 mg PO DAILY #30 tab.er.24h Metoprolol Succinate (ER) [Toprol XL] 12.5 mg PO HS #30 tab.er.24h Acetaminophen Tab [Tylenol] 650 mg PO Q6HR PRN tab PRN Reason: Mild Pain Or Fever > 100.5 Nicotine 14Mg/24Hr Patch [Habitrol] 1 patch TRANSDERM DAILY 30 Days #30 patch Nitroglycerin Sl Tabs [Nitrostat] 0.4 mg SUBLINGUAL Q5M PRN #30 tab PRN Reason: Chest Pain Losartan [Cozaar] 25 mg PO DAILY #30 tab Atorvastatin [Lipitor] 80 mg PO HS #30 tab Clopidogrel [Plavix] 75 mg PO DAILY #30 tab Continue Omeprazole 20 mg PO HS Albuterol Nebulized [Ventolin Nebulized] 2.5 mg INHALATION RT-QID PRN PRN Reason: Shortness Of Breath Nitroglycerin Sl Tabs [Nitrostat] 0.4 mg SL Q5M PRN PRN Reason: Chest Pain ALPRAZolam [Xanax] 0.25 mg PO DAILY ALPRAZolam [Xanax] 0.5 mg PO HS Cyclobenzaprine [Flexeril] 5 mg PO Q6H PRN PRN Reason: Muscle Spasm Aspirin EC [Ecotrin Low Dose] 81 mg PO Q48H Discontinued Aspirin 324 mg PO DIRECTED PRN PRN Reason: Chest Pain Discharge Medication List ALPRAZolam [Xanax] 0.25 mg PO DAILY 01/21/21 [History] ALPRAZolam [Xanax] 0.5 mg PO HS 01/21/21 [History] Albuterol Nebulized [Ventolin Nebulized] 2.5 mg INHALATION RT-QID PRN 01/21/21 [History] Aspirin EC [Ecotrin Low Dose] 81 mg PO Q48H 01/21/21 [History] Cyclobenzaprine [Flexeril] 5 mg PO Q6H PRN 01/21/21 [History] Nitroglycerin Sl Tabs [Nitrostat] 0.4 mg SL Q5M PRN 01/21/21 [History] Omeprazole 20 mg PO HS 01/21/21 [History] Acetaminophen Tab [Tylenol] 650 mg PO Q6HR PRN tab 01/23/21 [Rx] Atorvastatin [Lipitor] 80 mg PO HS #30 tab 01/23/21 [Rx] Clopidogrel [Plavix] 75 mg PO DAILY #30 tab 01/23/21 [Rx] Losartan [Cozaar] 25 mg PO DAILY #30 tab 01/23/21 [Rx] Metoprolol Succinate (ER) [Toprol XL] 12.5 mg PO HS #30 tab.er.24h 01/23/21 [Rx] Metoprolol Succinate (ER) [Toprol XL] 25 mg PO DAILY #30 tab.er.24h 01/23/21 [Rx] Nicotine 14Mg/24Hr Patch [Habitrol] 1 patch TRANSDERM DAILY 30 Days #30 patch 01/23/21 [Rx] Nitroglycerin Sl Tabs [Nitrostat] 0.4 mg SUBLINGUAL Q5M PRN #30 tab 01/23/21 [Rx] Follow up Appointment(s)/Referral(s): Tyrell Connors MD [Primary Care Provider] - 01/25/21 11:00 am (with [facility]) Jenna Foy MD [STAFF PHYSICIAN] - 1 Week (office will call with date and time of follow up appointment) Patient Instructions/Handouts: *Surgery [facility] - After Heart Catheterization - [employer] Instructions, How to Stop Smoking (DC), Heart Healthy Diet (DC) Activity/Diet/Wound Care/Special Instructions: Activity Limited until follow-up Follow-up with primary care provider upon discharge follow up with cardiology as discussed and scheduled Take medications as prescribed Continue heart healthy diet Discharge Disposition: HOME SELF-CARE
== END 2021-01-23 15:36 | disposition home or self-care (01) | DRG 247 ==
LOC: EC 09:52 → 3SCARD 10:38
PROVIDERS: ADMIT Internal Medicine; ATTEND Internal Medicine
PROC: 4A023N7 Measurement of Cardiac Sampling and Pressure, Left Heart, Percutaneous Approach (ICD-10-PCS; 2021-01-21)
PROC: 027034Z Dilation of Coronary Artery, One Artery with Drug-eluting Intraluminal Device, Percutaneous Approach (ICD-10-PCS; principal; 2021-01-21 12:53)
PROC: B2111ZZ Fluoroscopy of Multiple Coronary Arteries using Low Osmolar Contrast (ICD-10-PCS; 2021-01-21 12:53)
DX: I21.4 Non-ST elevation (NSTEMI) myocardial infarction (principal); I47.2 Ventricular tachycardia; I25.10 Atherosclerotic heart disease of native coronary artery without angina pectoris; I25.5 Ischemic cardiomyopathy; I10 Essential (primary) hypertension; F41.9 Anxiety disorder, unspecified; F17.200 Nicotine dependence, unspecified, uncomplicated; D72.829 Elevated white blood cell count, unspecified; E78.5 Hyperlipidemia, unspecified; I25.82 Chronic total occlusion of coronary artery; Z82.49 Family history of ischemic heart disease and other diseases of the circulatory system; I08.1 Rheumatic disorders of both mitral and tricuspid valves; Z71.6 Tobacco abuse counseling; Z88.8 Allergy status to other drugs, medicaments and biological substances; Z91.030 Bee allergy status; Z79.82 Long term (current) use of aspirin; Z79.899 Other long term (current) drug therapy
CPT/HCPCS: 36415; 80048; 80053; 83735; 84484; 85025; 85610; 85730; 93005; 93306; 93458; 94640; 96374; 96375; 99291